=== PATIENT | male | born 1995 | race African-American/Black ===

== ENCOUNTER 2017-09-24 03:52 | Emergency (ER) | payer OTHER ==
[~2017-09-24] VITALS: Ht 177.8 cm; Wt 70.0 kg
[2017-09-24 03:53] VITALS: BP 135/62; PULSE 72; RESP 14; TEMP 97.8; O2SAT 99
[2017-09-24] MEDS ORDERED: ONDANSETRON HCL 4 MG/2 ML VIAL IV PUSH ONE (04:15)
[2017-09-24] MEDS ORDERED: FAMOTIDINE 20 MG/2 ML VIAL IV PUSH SCH (04:15)
[2017-09-24] MEDS ORDERED: SODIUM CHLOR 0.9% 1000 ML INJ 1,000 ML IV ONE ×2 (04:15→06:00)
[2017-09-24 04:36] LABS: AUTOMATED NEUTROPHIL # 13.1 TH/MM3 (1.8-7.7); BASOPHIL % 0.2 % (0.0-2.0); EOSINOPHIL # 0.2 TH/MM3 (0-0.4); EOSINOPHIL % 1.4 % (0.0-4.0); HEMATOCRIT 46.5 % (39.0-51.0); HEMOGLOBIN 16.3 GM/DL (13.0-17.0); LYMPH % 4.8 % (9.0-44.0); LYMPHOCYTE # 0.7 TH/MM3 (1.0-4.8); MEAN CELL VOLUME 78.8 FL (80.0-100.0); MEAN CORPUSCULAR HEMOGLOBIN 27.7 PG (27.0-34.0); MEAN CORPUSCULAR HGB CONC 35.1 % (32.0-36.0); MEAN PLATELET VOLUME 9.3 FL (7.0-11.0); MONO % 6.9 % (0.0-8.0); NEUT % 86.7 % (16.0-70.0); PLATELET COUNT 168 TH/MM3 (150-450); RED CELL DISTRIBUTION WIDTH 13.5 % (11.6-17.2); WHITE BLOOD COUNT 15.1 TH/MM3 (4.0-11.0)
--- NOTE | 2017-09-24 04:51 | PD ---
HPI Chief Complaint: Abdominal Pain Time Seen by Provider: 04:12 Travel History International Travel<30 days: No Contact w/Intl Traveler<30days: No Traveled to known affect area: No History of Present Illness HPI Patient is a 22-year-old male who said tonight at midnight he began having vomiting and diarrhea. He said he ate an [place] side [place]. He then started having vomiting and diarrhea at about midnight. He has no past medical history his girlfriend was with him 8 the same food and she has no symptoms. He's had no other sick contacts. He was vomiting and having diarrhea at the same time his girlfriend gave him jeff ayan which did not help his symptoms and he was not able to keep it down. In the ER he is nontoxic- appearing but he does continue to vomit area labs are sent and liter fluid is given Zofran and Pepcid PFS Past Medical History Medical History: Denies Significant Hx Diminished Hearing: No Tetanus Vaccination: < 5 Years Influenza Vaccination: No Past Surgical History Surgical History: No Previous Surgery Social History Alcohol Use: No Tobacco Use: No Substance Use: No Allergies-Medications (Allergen,Severity, Reaction): Coded Allergies: No Known Allergies (Unverified , 09/24/17) Reported Meds & Prescriptions Reported Meds & Active Scripts Active Pepcid (Famotidine) 20 Mg Tab 20 Mg PO BID Zofran Odt (Ondansetron Odt) 4 Mg Tab 4 Mg SL Q8HR PRN Review of Systems Except as stated in HPI: all other systems reviewed are Neg Gastrointestinal: Positive: Nausea, Vomiting, Diarrhea, Abdominal Pain (left lower quadrant) Physical Exam Narrative GENERAL: Nontoxic nondiaphoretic no active vomiting SKIN: Warm and dry. HEAD: Atraumatic. Normocephalic. EYES: Pupils equal and round. No scleral icterus. No injection or drainage. ENT: No nasal bleeding or discharge. Mucous membranes pink and moist. NECK: Trachea midline. No JVD. CARDIOVASCULAR: Regular rate and rhythm. RESPIRATORY: No accessory muscle use. Clear to auscultation. Breath sounds equal bilaterally. GASTROINTESTINAL: Abdomen mild tenderness left lower quadrant other quadrants are nontender soft, nondistended. Hepatic and splenic margins not palpable. MUSCULOSKELETAL: Extremities without clubbing, cyanosis, or edema. No obvious deformities. NEUROLOGICAL: Awake and alert. No obvious cranial nerve deficits. Motor grossly within normal limits. Five out of 5 muscle strength in the arms and legs. Normal speech. PSYCHIATRIC: Appropriate mood and affect; insight and judgment normal. Data Data Last Documented VS Orders Orders Complete Blood Count With Diff (09/24/17 04:12) Comprehensive Metabolic Panel (09/24/17 04:12) Lipase (09/24/17 04:12) Sodium Chlor 0.9% 1000 Ml Inj (Ns 1000 M (09/24/17 04:15) Famotidine Inj (Pepcid Inj) (09/24/17 04:15) Ondansetron Inj (Zofran Inj) (09/24/17 04:15) Ketorolac Inj (Toradol Inj) (09/24/17 05:30) Sodium Chlor 0.9% 1000 Ml Inj (Ns 1000 M (09/24/17 06:00) Ed Discharge Order (09/24/17 06:30) Labs Laboratory Tests Test 09/24/17 04:20 White Blood Count 15.1 TH/MM3 Red Blood Count 5.90 MIL/MM3 Hemoglobin 16.3 GM/DL Hematocrit 46.5 % Mean Corpuscular Volume 78.8 FL Mean Corpuscular Hemoglobin 27.7 PG Mean Corpuscular Hemoglobin Concent 35.1 % Red Cell Distribution Width 13.5 % Platelet Count 168 TH/MM3 Mean Platelet Volume 9.3 FL Neutrophils (%) (Auto) 86.7 % Lymphocytes (%) (Auto) 4.8 % Monocytes (%) (Auto) 6.9 % Eosinophils (%) (Auto) 1.4 % Basophils (%) (Auto) 0.2 % Neutrophils # (Auto) 13.1 TH/MM3 Lymphocytes # (Auto) 0.7 TH/MM3 Monocytes # (Auto) 1.0 TH/MM3 Eosinophils # (Auto) 0.2 TH/MM3 Basophils # (Auto) 0.0 TH/MM3 CBC Comment DIFF FINAL Differential Comment Blood Urea Nitrogen 11 MG/DL Creatinine 1.14 MG/DL Random Glucose 124 MG/DL Total Protein 8.0 GM/DL Albumin 4.3 GM/DL Calcium Level 9.1 MG/DL Alkaline Phosphatase 84 U/L Aspartate Amino Transf (AST/SGOT) 23 U/L Alanine Aminotransferase (ALT/SGPT) 24 U/L Total Bilirubin 0.7 MG/DL Sodium Level 139 MEQ/L Potassium Level 3.5 MEQ/L Chloride Level 104 MEQ/L Carbon Dioxide Level 28.4 MEQ/L Anion Gap 7 MEQ/L Estimat Glomerular Filtration Rate 99 ML/MIN Lipase 100 U/L [facility] Medical Decision Making Medical Screen Exam Complete: Yes Emergency Medical Condition: Yes Differential Diagnosis virus gastroenteritis vs bacteria food [place] toxin vs idiopathic vomit vs cyclic vomit other Narrative Course symptomatic tratment alleviated his symptoms and tolerated PO no more abdominal pain no signs of appendicitis or pathology in need of CT told to follow up as out pateint. return to er if not improving with RX for zofran and pepcid Diagnosis Primary Impression: Gastroenteritis Patient Instructions: Acute Nausea and Vomiting (ED), General Instructions Scripts Famotidine (Pepcid) 20 Mg Tab 20 MG PO BID, #20 TAB 0 Refills Prov: Mannie Ritchie MD 09/24/17 Ondansetron Odt (Zofran Odt) 4 Mg Tab 4 MG SL Q8HR Y for Nausea/Vomiting, #12 TAB 0 Refills Prov: Mannie Ritchie MD 09/24/17 Disposition: 01 DISCHARGE HOME Condition: Good Mannie Ritchie MD Sep 24, 2017 04:51
[2017-09-24 04:55] LABS: ALBUMIN 4.3 GM/DL (3.4-5.0); ALT (GPT) 24 U/L (9-52); AST (GOT) 23 U/L (15-39); BICARBONATE 28.4 MEQ/L (21.0-32.0); BLOOD UREA NITROGEN 11 MG/DL (7-18); CALCIUM 9.1 MG/DL (8.5-10.1); CHLORIDE 104 MEQ/L (98-107); CREATININE 1.14 MG/DL (0.60-1.30); GLOMERULAR FILTRATION RATE 99 ML/MIN (>89); GLUCOSE,RANDOM 124 MG/DL (74-106); SODIUM (NA) 139 MEQ/L (136-145)
[2017-09-24 04:58] LABS: ALKALINE PHOSPHATASE 84 U/L (45-117); TOTAL BILIRUBIN ADULT 0.7 MG/DL (0.2-1.0)
[2017-09-24] MEDS ORDERED: KETOROLAC TROMETHAMINE 30 MG/ML (IVP) VIAL IV PUSH ONE (05:30)
[2017-09-24 06:13] VITALS: BP 117/78; PULSE 78; RESP 16; O2SAT 99
[2017-09-24] MEDS ORDERED: ZOFR4TAB3 SL (06:33)
[2017-09-24] MEDS ORDERED: FAMO1TAB37 PO (06:33)
== END 2017-09-24 06:54 | disposition home or self-care (01) ==
LOC: NEPE 03:52
DX: K52.9 Noninfective gastroenteritis and colitis, unspecified (principal); R19.7 Diarrhea, unspecified
CPT/HCPCS: 80053; 83690; 85025; 96361; 96374; 96375; 99284; J1885; J2405; J7030